=== PATIENT | male | born 1960 | race Caucasian/White ===

== ENCOUNTER 2024-06-15 16:41 | Emergency (ER) | payer MEDICARE, MEDICAID ==
[2024-06-15] MEDS ORDERED: Bacitracin Oint 1 GM U/D Packet ONE (18:18)
[2024-06-15] MEDS ORDERED: Bacitracin/Neomycin/Polymyxin B Oint 28.4 GM Tube ONE (18:20)
[2024-06-15] MEDS ORDERED: Bacitracin/Neomycin/Polymyxin B Oint 28.4 GM Tube TOP ONE (18:22)
[2024-06-15] MEDS: Diphtheria,Pertussis(Acell),Tetanus Vaccine 0.5 ML Syringe IM ONE (18:24)
[2024-06-15] MEDS: Take Home: Levofloxacin 500 MG Tab, 3 Tab Pack PO ONE (18:36)
== END 2024-06-15 18:40 | disposition home or self-care (01) ==
LOC: DL.ED 16:41
DX: S91.341A Puncture wound with foreign body, right foot, initial encounter (principal); S91.321A Laceration with foreign body, right foot, initial encounter; Z23 Encounter for immunization; W34.00XA Accidental discharge from unspecified firearms or gun, initial encounter; Y93.89 Activity, other specified
CPT/HCPCS: 12001; 28190; 73620; 90471; 90715; 99283; A9270